=== PATIENT | male | born 1965 | race Caucasian/White ===

== ENCOUNTER 2017-07-09 13:50 | Emergency (ER) | payer BC ==
[~2017-07-09] VITALS: Ht 172.7 cm; Wt 86.2 kg
[~2017-07-09 13:50] MED LIST: SIMV40TA5 PO
[2017-07-09 13:57] VITALS: BP_SYST 139
[2017-07-09] MEDS ORDERED: KETOROLAC TROMETHAMINE 60 MG/2 ML VIAL IM ONE (14:15)
[2017-07-09 15:07] VITALS: BP_SYST 130
== END 2017-07-09 15:07 | disposition home or self-care (01) ==
LOC: SED 13:50
DX: S16.1XXA Strain of muscle, fascia and tendon at neck level, initial encounter (principal); E78.00 Pure hypercholesterolemia, unspecified; R03.0 Elevated blood-pressure reading, without diagnosis of hypertension; V43.52XA Car driver injured in collision with other type car in traffic accident, initial encounter; Y93.89 Activity, other specified; Y92.488 Other paved roadways as the place of occurrence of the external cause; Y99.8 Other external cause status
CPT/HCPCS: 72040; 96372; 99284; J1885

== ENCOUNTER 2018-11-03 15:59 | Emergency (ER) | payer BC ==
[~2018-11-03] VITALS: Ht 172.7 cm; Wt 86.2 kg
[2018-11-03 16:12] VITALS: BP_SYST 160
--- NOTE | 2018-11-03 17:45 | NUR ---
Patient to ER bed H1 to gown for evaluation. Side rails up.
--- NOTE | 2018-11-03 17:46 | NUR ---
Pt brought by self, A&Ox4, pt presents to ER with neck pain for 2 weeks , c/o nausea and discomfort , pt is afebrile, states he is able to swallow , skin pink and warm, denies SOB , respirations even and unlabored.
--- NOTE | 2018-11-03 17:48 | NUR ---
Dr Rios at bedside examining patient
[2018-11-03 18:09] LABS: BASOPHILS # (AUTO) 0.1 K/uL (0.0-0.2); BASOPHILS % (AUTO) 0.8 % (0.0-2.0); EOSINOPHILS # (AUTO) 0.1 K/uL (0.0-0.4); HEMATOCRIT 42.9 % (36-54); HEMOGLOBIN 14.5 g/dL (14.0-18.0); LYMPHOCYTES # (AUTO) 1.5 K/uL (1.0-5.5); LYMPHOCYTES % (AUTO) 23.5 % (20.5-51.5); MEAN CORPUSCULAR HEMOGLOBIN 31 pg (27-31); MEAN CORPUSCULAR HGB CONC 34 % (32-36); MEAN CORPUSCULAR VOLUME 92 fL (79.0-98.0); MONOCYTES # (AUTO) 0.3 K/uL (0.0-1.0); MONOCYTES % (AUTO) 5.3 % (1.7-9.3); NEUTROPHILS # (AUTO) 4.5 K/uL (1.8-7.7); NEUTROPHILS % (AUTO) 69.4 % (40.0-70.0); PLATELET COUNT (AUTO) 185 K/uL (130-430); RED BLOOD CELL COUNT(AUTO) 4.64 MIL/uL (4.2-6.2); RED CELL DISTRIBUTION WIDTH 13.2 % (9.0-15.0); WHITE BLOOD COUNT (AUTO) 6.5 K/uL (4.8-10.8)
[2018-11-03 18:57] LABS: ANION GAP 10 (5-15); CHLORIDE 102 mmol/L (98-107); CREATININE 1.21 mg/dL (0.55-1.30); GLUCOSE 90 mg/dL (70-99); POTASSIUM 3.7 mmol/L (3.5-5.1); SODIUM SERUM 140 mmol/L (136-145); UREA NITROGEN, BLOOD 19 mg/dL (8-21)
[2018-11-03 19:01] LABS: PROTHROMBIN TIME 10.1 SECS (9.5-12.5)
[2018-11-03 19:08] LABS: GFR AFRICAN AMERICAN 80 mL/min (>90)
[2018-11-03] MEDS ORDERED: IOHEXOL 100 ML IV ONE (19:26)
[2018-11-03 19:30] LABS: ALANINE AMINOTRANSFERASE 20 U/L (12-78); ALBUMIN 4.7 g/dL (3.4-4.8); ASPARTATE AMINOTRANSFERASE 15 U/L (10-37); C-REACTIVE PROTEIN QUANT < 0.2 mg/dL (0-0.5); THYROID STIMULATING HORMONE 0.87 uIu/mL (0.34-4.82); TOTAL BILIRUBIN 0.6 mg/dL (0.0-1.0)
--- NOTE | 2018-11-03 20:13 | NUR ---
Pt sitting in the chair at this time , no s/s of distress , family at bedside.
--- NOTE | 2018-11-03 20:53 | NUR ---
Neeru lindsay in ED - 11/03/18 at 2053 by ADA Pt moved to DENAE chair 1 pending D/C.
[2018-11-03 21:04] VITALS: BP_SYST 142
--- NOTE | 2018-11-03 21:05 | NUR ---
Patient given written and verbal discharge instructions and verbalizes understanding. ER MD discussed with patient the results and treatment provided. Patient in stable condition. ID arm band removed. No Rx given. Patient educated on pain management and to follow up with PMD. Pain Scale 2/10 tolerable for pt . Opportunity for questions provided and answered. Medication side effect fact sheet provided.
== END 2018-11-03 21:05 | disposition home or self-care (01) ==
LOC: SED 15:59
DX: M54.2 Cervicalgia (principal); E78.00 Pure hypercholesterolemia, unspecified; R03.0 Elevated blood-pressure reading, without diagnosis of hypertension
CPT/HCPCS: 36415; 70491; 80053; 83605; 84439; 84443; 85025; 85610; 85730; 86140; 86677; 86735; 99284; Q9967

== ENCOUNTER 2021-02-11 21:14 | Emergency (ER) | payer BC ==
[~2021-02-11] VITALS: Ht 172.7 cm; Wt 87.1 kg
[~2021-02-11 21:14] MED LIST changes: +SIMV-46 PO; -SIMV40TA5 PO
[2021-02-11 21:31] VITALS: BP_SYST 153
[2021-02-11] MEDS ORDERED: MORPHINE 2 MG/ML INJ. SYRINGE IVP ONE (22:30)
[2021-02-11] MEDS ORDERED: ONDANSETRON HCL 4 MG/2 ML VIAL IVP ONE (22:30)
[2021-02-11 23:11] LABS: BILIRUBIN,URINE NEGATIVE (NEGATIVE); BLOOD, URINE NEGATIVE (NEGATIVE); CLARITY/URINE CLEAR (CLEAR); COLOR,URINE YELLOW (YELLOW); GLUCOSE,URINE NEGATIVE (NEGATIVE); KETONES,URINE NEGATIVE (NEGATIVE); LEUKOCYTE ESTERASE ,URINE NEGATIVE (NEGATIVE); NITRITE, URINE NEGATIVE (NEGATIVE); PROTEIN URINE NEGATIVE (NEGATIVE); UROBILINOGEN,URINE 0.2 (0.2-1.0)
--- NOTE | 2021-02-11 23:20 | NUR ---
PATIENT C/O ABD PAIN FOR 3 DAYS. PAIN DIFFUSED ABD PAIN. PATIENT DENIES VOMITING STATES AVING NAUSEA.
[2021-02-11 23:37] LABS: WHITE BLOOD COUNT (AUTO) 5.1 K/uL (4.8-10.8)
[2021-02-11 23:42] LABS: BASOPHILS % (AUTO) 0.8 % (0.0-2.0); EOSINOPHILS # (AUTO) 0.1 K/uL (0.0-0.4); EOSINOPHILS % (AUTO) 2.4 % (0.0-4.0); HEMATOCRIT 39.9 % (36-54); HEMOGLOBIN 13.8 g/dL (14.0-18.0); LYMPHOCYTES # (AUTO) 1.4 K/uL (1.0-5.5); LYMPHOCYTES % (AUTO) 27.8 % (20.5-51.5); MEAN CORPUSCULAR HEMOGLOBIN 31 pg (27-31); MEAN CORPUSCULAR HGB CONC 35 % (32-36); MEAN CORPUSCULAR VOLUME 91 fL (79.0-98.0); MONOCYTES # (AUTO) 0.4 K/uL (0.0-1.0); MONOCYTES % (AUTO) 8.7 % (1.7-9.3); NEUTROPHILS # (AUTO) 3.1 K/uL (1.8-7.7); NEUTROPHILS % (AUTO) 60.3 % (40.0-70.0); PLATELET COUNT (AUTO) 184 K/uL (130-430); RED CELL DISTRIBUTION WIDTH 13.7 % (9.0-15.0)
[2021-02-11 23:44] LABS: CALCIUM 9.9 mg/dL (8.4-11.0); CREATININE 1.22 mg/dL (0.55-1.30); POTASSIUM 4.8 mmol/L (3.5-5.1)
[2021-02-11 23:49] LABS: ALBUMIN 4.5 g/dL (3.4-4.8); TOTAL BILIRUBIN 0.6 mg/dL (0.0-1.0)
[2021-02-12] MEDS ORDERED: PANTOPRAZOLE SODIUM 40 MG/VIAL (PROTONIX) IVP ONE
[2021-02-12] MEDS ORDERED: ACETAMINOPHEN 500 MG TABLET PO ONE (00:15)
[2021-02-12] MEDS ORDERED: DOCU-144 PO (00:25)
[2021-02-12] MEDS ORDERED: ONDA-8 TL (00:25)
[2021-02-12] MEDS ORDERED: OMEP20CA15 PO (00:25)
[2021-02-12] MEDS ORDERED: MAGNESIUM CITRATE 300 ML ORAL SOLUTION PO ONE (00:30)
[2021-02-12 00:44] VITALS: BP_SYST 180
== END 2021-02-12 00:44 | disposition home or self-care (01) ==
LOC: SED 21:14
DX: K59.00 Constipation, unspecified (principal); R10.84 Generalized abdominal pain; E78.00 Pure hypercholesterolemia, unspecified; Z79.899 Other long term (current) drug therapy
CPT/HCPCS: 36415; 74021; 80053; 81003; 83690; 85025; 96374; 96375; 99284; J2405; J2270